=== PATIENT | female | born 1965 | race Caucasian/White ===

== ENCOUNTER → 2022-06-08 09:05 | Outpatient (BNVA) | payer BC, MEDICAID, SELFPAY | PROVIDERS: PCP Registered Nurse; Referring Provider Registered Nurse; Visit Provider Specialist | DX: M17.0 Bilateral primary osteoarthritis of knee (principal) | CPT/HCPCS: 73560; 73565 ==

== ENCOUNTER → 2022-09-07 16:26 | Outpatient (BNVA) | payer BC, MEDICAID, SELFPAY | PROVIDERS: PCP Registered Nurse; Visit Provider Registered Nurse | DX: I10 Essential (primary) hypertension (principal); E78.5 Hyperlipidemia, unspecified; E55.9 Vitamin D deficiency, unspecified; M62.838 Other muscle spasm; F17.210 Nicotine dependence, cigarettes, uncomplicated | CPT/HCPCS: 80053; 80061; 82306; 85025 ==

== ENCOUNTER → 2022-10-15 11:04 | Outpatient (BNVA) | payer BC, MEDICAID, SELFPAY | PROVIDERS: PCP Registered Nurse; Visit Provider Registered Nurse | DX: Z00.00 Encounter for general adult medical examination without abnormal findings (principal) | CPT/HCPCS: 81000 ==

== ENCOUNTER → 2022-10-22 15:07 | Outpatient (BNVA) | payer BC, MEDICAID, SELFPAY | PROVIDERS: PCP Registered Nurse; Visit Provider Registered Nurse | DX: Z01.419 Encounter for gynecological examination (general) (routine) without abnormal findings (principal) | CPT/HCPCS: 87624 ==

== ENCOUNTER 2022-11-12 09:11 | Outpatient (CLI) | payer BC, MEDICAID, SELFPAY ==
--- NOTE | 2022-11-12 02:16 | MM_ITS ---
WS: [id number] SCREENING DIGITAL BREAST TOMOSYNTHESIS MAMMOGRAM WITH CAD HISTORY: Screening exam. COMPARISON: 01/17/2019 and 02/28/2016 Bilateral CC and MLO with tomosynthesis and synthetic mammography submitted. Computer aided detection analyzed. Breast composition: There are scattered areas of fibroglandular density. There is a new 8 x 8 mm slig htly lobulated high density nodule in the central LEFT breast. This is directly posterior and may be just above the nipple line. There is an additional benign lymph node upper outer quadrant LEFT breast . MM/[place] [id number] IMPRESSION: BI-RADS: 0-Incomplete: Need additional imaging evaluation FOLLOW UP: Need Additional Imaging Recommendation: Limited LEFT breast ultrasound directed posterior to the LEFT n ipple.
== END 2022-11-12 09:12 | disposition home or self-care (01) ==
LOC: RAD 09:14
PROVIDERS: PCP Registered Nurse; Visit Provider Registered Nurse
DX: Z12.31 Encounter for screening mammogram for malignant neoplasm of breast (principal)
CPT/HCPCS: 77063; 77067

== ENCOUNTER 2022-12-08 11:57 | Outpatient (CLI) | payer BC, MEDICAID, SELFPAY ==
--- NOTE | 2022-12-08 12:25 | CT_ITS ---
WS: [id number] LDCT LUNG CANCER SCREENING HISTORY: F17.210 - Nicotine dependence, cigarettes, uncomplicated TECHNIQUE: Axial imaging performed from the apices to 1 cm below the costophrenic angles. Coronal and sagittal reformats are submitted with axial MIP series. All CT scans at [facility] use at least one of these dose optimization techniques: automated exposure control; mA and/or kV adjustment per patient size (includes targeted exams where dose is matched to clinical indication); or iterativ e reconstruction. DLP: 73.32 mGy.cm DIvol: Mean CTDIvol: 1.60 (mGy) COMPARISON: None available. Diagnostic quality: Satisfactory Lungs: Spiculated nodule measures 4 mm in the RIGHT upper lobe. Linear atelectasis at the lingula. No endobronchial lesions. Heart: Normal size heart with no pericardial effusion.. Other findings: No adenopathy. Normal size aorta. Negative upper abdomen. CT/CT lung screening [id number] IMPRESSION: LUNG-RADS: 3-Probably Benign FOLLOW UP: 6 Month LDCT OTHER FINDINGS (S MODIFIER): None.
== END 2022-12-08 11:58 | disposition home or self-care (01) ==
LOC: RAD 12:02
PROVIDERS: PCP Registered Nurse; Visit Provider Registered Nurse
DX: Z12.2 Encounter for screening for malignant neoplasm of respiratory organs (principal); F17.210 Nicotine dependence, cigarettes, uncomplicated
CPT/HCPCS: 71271

== ENCOUNTER 2022-12-22 14:21 | Outpatient (CLI) | payer BC, MEDICAID, SELFPAY ==
--- NOTE | 2022-12-22 14:49 | US_ITS ---
WS: [id number] ULTRASOUND LEFT BREAST, limited HISTORY: ABNORMAL MAMMO, ultrasound directed central to the LEFT nipple. COMPARISON: Mammogram 11/12/2022 TECHNIQUE: 2-D and Doppler. Central to the nipple is a well-circumscribed cyst measuring 8 x 4 x 7 mm. Corresponds in size and lo cation to the mammographic abnormality. No solid mass. No distortion or shadowing. US/US breast LT limited* [id number] IMPRESSION: BI-RADS: 2-Benign FOLLOW-UP: 1 Year Follow-up Return to annual screening mammography.
== END 2022-12-22 14:22 | disposition home or self-care (01) ==
LOC: RAD 14:26
PROVIDERS: PCP Registered Nurse; Visit Provider Registered Nurse
DX: R92.8 Other abnormal and inconclusive findings on diagnostic imaging of breast (principal)
CPT/HCPCS: 76642

== ENCOUNTER 2023-07-14 11:57 | Outpatient (CLI) | payer BC, MEDICAID, SELFPAY ==
--- NOTE | 2023-07-14 12:30 | CTR_ITS ---
PROCEDURE INFORMATION: Exam: CT Chest Without Contrast; Diagnostic Exam date and time: 07/14/2023 12:14 PM Age: 58 years old Clinical indication: Condition or disease; Lung condition and disease; Pulmonary nodule, solitary; Additional info: R91.1 - solitary pulmonary nodule, [address] TECHNIQUE: Imaging protocol: Diagnostic computed tomography of the chest without contrast. Radiation optimization: All CT scans at this facility use at least one of these dose optimization techniques: automated exposure control; mA and/or kV adjustment per patient size (includes targeted exams where dose is matched to clinical indication); or iterative reconstruction. REPORTING DATA: Count of CT and Cardiac NM exams in prior 12 months: This patient has received [address] and 0 known cardiac nuclear medicine studies in the 12 months prior to the current study. COMPARISON: CT lung screening [id number] 12/08/2022 12:32 PM RADIATION DOSE METRICS: Total DLP (mGy-cm): 524.83 FINDINGS: Lungs: Unchanged appearance right upper lobe nodule (series 5, image 11). Unchanged left upper lobe nodule (series 5, image 16). Unchanged subtle lingular atelectasis. Pleural spaces: Unremarkable. No pneumothorax. No pleural effusion. Heart: Unremarkable. No cardiomegaly. No pericardial effusion. Lymph nodes: Pretracheal lymph node is slightly smaller than on the prior study. Vasculature: Unremarkable. No aortic aneurysm. Bones/joints: Diffuse degenerative disc disease with bulky anterior osteophytes through the mid and lower thoracic spine. Soft tissues: Unremarkable. CT/CT chest wo [facility] [id number] IMPRESSION: Unchanged appearance of 2 small subsolid nodules in comparison to 12/08/2022. Given stability, would recommend follow-up exam in 2 years. References: Saran Ortiz et al. Guidelines for Management of Incidental Pulmonary Nodules Detected on CT Images: From the Fleischner Society 2017. Radiology. 2017;284(1):228-243.
== END 2023-07-14 11:58 | disposition home or self-care (01) ==
LOC: RAD 11:58
PROVIDERS: PCP Registered Nurse; Visit Provider Registered Nurse
DX: R91.8 Other nonspecific abnormal finding of lung field (principal)
CPT/HCPCS: 71250

== ENCOUNTER → 2023-09-09 10:54 | Outpatient (BNVA) | payer BC, MEDICAID, SELFPAY | PROVIDERS: PCP Registered Nurse; Visit Provider Registered Nurse | DX: I10 Essential (primary) hypertension (principal); F17.210 Nicotine dependence, cigarettes, uncomplicated; Z79.899 Other long term (current) drug therapy | CPT/HCPCS: 80053; 80061; 85025 ==

== ENCOUNTER → 2024-05-09 11:02 | Outpatient (BNVA) | payer BC, MEDICAID, SELFPAY | PROVIDERS: PCP Registered Nurse; Visit Provider Registered Nurse | DX: I10 Essential (primary) hypertension (principal) | CPT/HCPCS: 80053; 80061; 83036; 85025 ==

== ENCOUNTER 2024-06-06 09:59 | Outpatient (CLI) | payer BC, MEDICAID, SELFPAY ==
--- NOTE | 2024-06-06 10:00 | CT_ITS ---
WS: [id number] LDCT LUNG CANCER SCREENING TECHNIQUE: Noncontrast CT of the chest with coronal and sagittal reformatted images. CLINICAL INFORMATION: Z12.2 - Encounter for screening for malignant neoplasm of... COMPARISON: 07/14/2023 DLP: 96.00 mGy.cm DIvol: Mean CTDIvol: 2.30 (mGy) All CT scans at [facility] use at least one of these dose optimization techniques: automat ed exposure control; mA and/or kV adjustment per patient size (includes targeted exams where dose is matched to clinical indication); or iterative reconstruction. FINDINGS: A few tiny subcentimeter nodules unchanged from the prior examinations. No new suspicious pulmonary p arenchymal abnormalities. Normal caliber thoracic aorta. No mediastinal or hilar lymphadenopathy. No axillary lymphadenopathy. Adrenal glands are normal. Normal GE junction. CT/CT lung screening [id number] IMPRESSION: LUNG-RADS: 2-Benign Appearance or Behavior FOLLOW UP: 12 Month: Continue annual screening with LDCT
== END 2024-06-06 10:00 | disposition home or self-care (01) ==
LOC: RAD 10:00
PROVIDERS: PCP Registered Nurse; Visit Provider Registered Nurse
DX: Z12.2 Encounter for screening for malignant neoplasm of respiratory organs (principal); R91.8 Other nonspecific abnormal finding of lung field
CPT/HCPCS: 71271

== ENCOUNTER 2024-07-05 10:55 | Outpatient (CLI) | payer BC, MEDICAID, SELFPAY ==
--- NOTE | 2024-07-05 11:00 | MM_ITS ---
WS: [id number] BILATERAL SCREENING DIGITAL TOMOSYNTHESIS MAMMOGRAM WITH CAD HISTORY: Z12.39 - Encounter for other screening for malignant neop... COMPARISON: 11/12/2022, 01/17/2019 Bilateral CC and MLO views with tomosynthesis and synthetic mammography submitted. Computer aided det ection analyzed. Breast composition: There are scattered areas of fibroglandular density. No suspicious masses, microc alcifications or architectural distortion. Intramammary lymph nodes are stable LEFT breast. No interv al change since 01/17/2019. MM/MM scr BI tomosynthesis [id number] IMPRESSION: BI-RADS: 2 - Benign. FOLLOW UP: 1 Year Follow-up
== END 2024-07-05 10:56 | disposition home or self-care (01) ==
PROVIDERS: PCP Registered Nurse; Visit Provider Registered Nurse
DX: Z12.31 Encounter for screening mammogram for malignant neoplasm of breast (principal)
CPT/HCPCS: 77063; 77067

== ENCOUNTER 2025-05-29 11:06 | Outpatient (CLI) | payer BC, MEDICAID, SELFPAY | END 2025-05-29 11:07 | disposition home or self-care (01) | LOC: LAB 05-30 06:54 | PROVIDERS: PCP Registered Nurse; Visit Provider Registered Nurse | DX: I10 Essential (primary) hypertension (principal) | CPT/HCPCS: 80053; 80061; 85025 ==

== ENCOUNTER 2025-06-18 13:30 | Emergency (ER) | payer BC, MEDICAID, SELFPAY ==
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
--- OUTSIDE RECORDS SUMMARY | 2025-06-18 13:40 | XMS_ITS | Clinical Summary ---
Author Organization [facility] Address [address] [place] [address] Phone Care Team Providers Care Web Site Administrator Name Role Phone Unavailable Primary Care Provider Unavailabl e Allergies No known active allergies Medications atenoloL 25 mg tablet Take 12.5 mg by mouth daily. Active omeprazole 20 mg capsule,delayed release Take 20 mg by mouth daily. Active amLODIPine 10 mg tablet Take 10 mg by mouth daily. Active spironolactone 50 mg tablet Take 50 mg by mouth daily. Active fexofenadine 60 mg tablet Take 60 mg by mouth daily. Active aspirin (ECOTRIN EC) 81 mg Tablet, Delayed Release (E.C.) Take 81 mg by mouth daily. Active atorvastatin (LIPITOR) 10 mg tablet Take 10 mg by mouth daily. Active Immunizations Immunization Administration Dates Next Due (ADACEL/BOOSTRIX)(10 YR UP) TDAP VACCINE, 0.5ML, IM 12/20/2024 Family History Medical History Relation Name Comments Colon Cancer Neg Hx Social History Tobacco Use Types Packs/Day Years Used Date Smoking Tobacco: Every Day Cigarettes Smokeless Tobacco: Never Tobacco Cessation:Ready to Q uit: Not Asked; Counseling Given: Not Answered Alcohol Use Standard Drinks/Week Comments Not Currently 0 (1 standard drink = 0.6 oz pur e alcohol) Feeling Safe Answer Date Recorded Are you in a relationship wi th someone who hurts you emotionally and/or physically? No 12/20/2024 Comments No Sex and Gender Information Value Date Recorded Sex Assigned at Not on file Legal Sex Female 11:03 AM CDT Gender Identity Not on file Sexual Orientation Not on file Last Filed Vital Signs Vital Sign Reading Time Taken Comments Blood Pressure 110/81 12/20/2024 4:15 PM CDT Pulse 81 12/20/2024 4:15 PM CDT Temperature 36.8 C (98.3 F) 12/20/2024 4:15 PM CDT Respiratory Rate 15 12/20/2024 4:15 PM CDT Oxygen Saturation 90% 12/20/2024 4:15 PM CDT Inhaled Oxygen Concentration - - Weight 89.8 kg (198 lb) 12/20/2024 4:15 PM CDT Height 167.6 cm (5' 6 ) 12/20/2024 4:15 PM CDT Body Mass Index 31.96 12/20/2024 4:15 PM CDT Plan of Treatment Health Maintenance Due Date Last Done Comments Pre-Diabetes and Diabetes Screening 1966 HPV/Cotest (21-29) 1987 CERVICAL CANCER SCREENING 1996 HPV/Cotest (30-65) 1996 PAP SMEAR 1996 BREAST CANCER SCREENING 2006 COLORECTAL SCREENING 2011 Colorectal Cancer Screening 2011 FIT-DNA Q 3 years 2011 FIT/FOBT Q 1 year 2011 Flex Sig/CT Colonography Q 5 years 2011 HEPATITIS B VACCINES (3 of 4 - Hep B Twinrix 4-dose series) 01/31/2019 01/17/2019, 01/04/2019, 12/27/2018 ZOSTER VACCINE (2 of 2) 07/15/2021 05/20/2021 INFLUENZA VACCINE (#1) 2025 COVID-19 Vaccine ( - season) 2025, 04/29/2021 DTAP/TDAP/TD VACCINES (3 - T d or Tdap) 12/20/2034 12/20/2024, 12/27/2018 Insurance [facility] MEDICAID
[2025-06-18 13:43] VITALS: BP 155/87; PULSE 79; RESP 16; TEMP 36.9; O2SAT 97
[2025-06-18 14:01] LABS: Glucose Urine UA Negative (Normal); Nitrate Urine Negative (Negative); Specific Gravity, Urine 1.017 (1.005-1.030)
[2025-06-18 14:06] LABS: Add Urine Microscopic? YES
[2025-06-18 14:23] LABS: Hematocrit 44.3 % (36-47); Hemoglobin 15.70 g/dL (11.27-16.99); Mean Corpuscular HGB Conc 35.4 g/dL (30-55); Mean Corpuscular Hemoglobin 31.5 pg (27-33); Mean Corpuscular Volume 89.0 fl (85-98); Nucleated Red Blood Cells % 0 %; Platelet Count 349 10^3/cmm (157-399); Red Blood Count 4.98 10^6/uL (3.85-5.65); White Blood Count 11.45 10^3/uL (3.29-11.43)
[2025-06-18 14:40] LABS: Alanine Aminotransferase 13 U/L (0-33); Albumin Level 4.4 g/dL (3.5-5.2); Alkaline Phosphatase 98 U/L (35-105); Anion Gap 15.9 (5-19); Aspartate Amino Transferase 14 U/L (0-32); Blood Urea Nitrogen 9 mg/dL (6-20); Calcium 9.7 mg/dL (8.5-10.5); Carbon Dioxide 21 mmol/L (22-29); Chloride 106 mmol/L (98-107); Creatinine Clr Calc Pharmacy 98.1337; Globulin 2.9 g/dL (1.3-4.6); Glucose 96 mg/dL (65-115); Osmolality Calculated 287 mOsm/kg (285-295); Potassium 3.9 mmol/L (3.5-5.1); Sodium 139 mmol/L (136-145); Total Protein 7.3 g/dL (6.6-8.7)
--- NOTE | 2025-06-18 16:03 | ED_ITS ---
HPI - Female Genitourinary 2 General: Chief complaint: General Medical Stated complaint: woke up spotting Time Seen by Provider: 06/18/25 13:41 Source: patient Mode of arrival: ambulatory Limitations: no limitations History of Present Illness: Patient is a 59-year-old female presents to ED today along with her significant other for evaluation of spotting . She states this morning she woke up with a small amount of bright red blood in her underwear. Patient states when she went to the bathroom and wiped she noticed additional bright red blood on the toilet paper. Patient states she is not sure if this is coming from her urethra, vagina, or rectum. She states she entered menopause over 10 years ago. She does reportedly get well woman exams through her primary care provider. She states she is not having dysuria, urinary frequency or urgency. She is not having any flank pain. She does report maybe some mild pressure to her left ovary and some lower back pain that she noticed while sitting in the waiting room. She is not having fevers. Denies history of hemorrhoids. She has not noticed any bright red blood when wiping after defecation. MD elicited complaint: vaginal bleeding Onset (ago): hour(s) Vaginal discharge: none Vaginal bleeding: scant Exacerbating factors: none Relieving factors: none Associated symptoms: Deny abdominal pain, headache(s), nausea or vaginal discharge Treatment prior to arrival: none Patient : No Related Data Home Medications ?Medication ?Instructions ?Recorded ?Confirmed cetirizine 10 mg capsule (Allergy 10 mg PO DAILY PRN a llergies 02/12/22 06/18/25 Relief (cetirizine)) aspirin 81 mg tablet,delayed 81 mg PO DAILY 06/06/24 0 06/18/25 release Previous Rx's ?Medication ?Instructions ?Recorded spironolactone 50 mg tablet See Rx Instructions .Route 04/26/25 .COMPLEX #90 tabs amlodipine 10 mg tablet See Rx Instructions .Route 0 05/15/25 .COMPLEX #90 tabs atenolol 25 mg tablet See Rx Instructions .Route 0 05/15/25 .COMPLEX 90 days #45 tabs atorvastatin 10 mg tablet See Rx Instructions .Route 0 06/12/25 .COMPLEX #90 tabs Allergies Allergy/AdvReac Type Severity Reaction Status Date / Time No Known Allergies Allergy Verified 05/29/25 10:49 Review of Systems 2 Const: Denies: fever(s), chills, body aches, fatigue or malaise Card: Denies: chest pain Resp: Denies: dyspnea GI: Denies: abdominal pain, nausea, vomiting, diarrhea, GI cramping, hematochezia or melena : Reports: vaginal bleeding and pelvic pain (reports maybe some pressure to my left ovary ); Denies: flank pain, difficulty voiding, dysuria, urinary frequency, urinary urgency, urinary hesitancy, hematuria, vaginal odor or vaginal discharge Musc: Denies: neck pain, back pain, extremity pain, extremity swelling or joint swelling Skin/Breast: Denies: rash Neuro: Denies: headache(s), numbness in extremities, weakness in extremities or sensory changes PFSH ED 2 PFSH: Medical History Fibromyalgia Arthritis Family History Father Cancer Mother Diabetes Grandmother Diabetes Social History Smoking and tobacco/nicotine status: current every day tobacco/nicotine user cigarettes Alcohol intake: never Substance/Drug Use: never Adopted: No Caregiver/support person: No Lives independently: No Household members: spouse Marital status: service: No Current occupational status: previously employed Sexually active: Yes Do you think of yourself as: Straight/Heterosexual Current gender identity: Female Physical Exam 2 Const: COMMON NORMALS: no acute distress, average body habitus, patient oriented x3, no limitations, healthy appearing, alert and well nourished G ENERAL APPEARANCE: cooperative Resp: COMMON NORMALS: normal respiratory effort and clear to auscultation bilaterally AUSCULTATION: clear to auscultation bilaterally Cardio: COMMON NORMALS: regular rate and regular rhythm RATE: regular rate RHYTHM: regular rhythm GI: COMMON NORMALS: Normal to inspection, nondistended, normoactive bowel sounds present, Soft to palpation, non-tender, No hepatosplenomegaly present and no masses PALPATION: Yes Soft to palpation and Yes No hepatosplenomegaly present : COMMON NORMALS: Yes no CVA tenderness BLADDER/KIDNEY EXAM: Yes no CVA tenderness Back/Pelvis: COMMON NORMALS: no CVA tenderness Neuro: COMMON NORMALS: patient oriented x3 SENSORIUM/ORIENTATION: Yes alert Course 2 Vital Signs: Vital signs: Vital Signs Temperature 98.5 F 06/18/25 13:43 Pulse Rate 79 06/18/25 13:43 Respiratory Rate 16 06/18/25 13:43 Blood Pressure 155/87 06/18/25 13:43 Pulse Oximetry 97 06/18/25 13:43 Oxygen Delivery Me thod Room Air 06/18/25 13:43 MDM - Female Medical Decision Making Based on her history, I suspect bleeding is vaginal. Her UA here is negative for blood. Blood work is unremarkable. US transvaginal obtained showing a prominent endometrium as well as an irregular appearance of her cervical canal. Recommend direct visualization/tissue sampling to exclude neoplasm. Case management referral has been placed to get her gynecology follow-up for this. She is not actively bleeding. She is stable for discharge from the emergency department. Return ED precautions discussed. Medical Records I reviewed the patient's medical records. Lab Data I reviewed the patient's lab results. 06/18/25 14:12 06/18/25 14:12 Radiology Impressions Transvaginal US 06/18/25 16:03 IMPRESSION: 1. Prominent endometrium in the lower uterine segment as well as a prominent, irregular appearance of the cervical canal. Consider direct visualization/tissue sampling to exclude neoplasm. 2. Bilateral ovaries not visualized. Laboratory Results WBC 11.45 10^3/uL (3.29-11.43) H 06/18/25 14:12 RBC 4.98 10^6/uL (3.85-5.65) 06/18/25 14:12 Hgb 15.70 g/dL (11.27-16.99) 06/18/25 14:12 Hct 44.3 % (36-47) 06/18/25 14:12 MCV 89.0 fl (85-98) 06/18/25 14:12 MCH 31.5 pg (27-33) 06/18/25 14:12 MCHC 35.4 g/dL (30-55) 06/18/25 14:12 RDW 13.2 % (12.1-15.1) 06/18/25 14:12 Plt Count 349 10^3/cmm (157-399) 06/18/25 14:12 MPV 10.1 fL (7.4-10.4) 06/18/25 14:12 Neut % (Auto) 59.2 % 06/18/25 14:12 Lymph % (Auto) 29.0 % 06/18/25 14:12 [place] % (Auto) 8.7 % 06/18/25 14:12 Eos % (Auto) 1.6 % 06/18/25 14:12 Baso % (Auto) 0.9 % 06/18/25 14:12 Neut # (Auto) 6.78 10^3/uL (1.8-7.7) 06/18/25 14:12 Lymph # (Auto) 3.3 10^3/uL (0.8-4.8) 06/18/25 14:12 [place] # (Auto) 1.0 10^3/uL (0.2-0.9) H 06/18/25 14:12 Eos # (Auto) 0.2 10^3/uL (0.0-0.8) 06/18/25 14:12 Baso # (Auto) 0.1 10^3/uL (0.0-0.1) 06/18/25 14:12 Nucleated RBC % (auto) 0 % 06/18/25 14:12 Nucleated RBCs # 0.0 /100WBC 06/18/25 14:12 Sodium 139 mmol/L (136-145) 06/18/25 14:12 Potassium 3.9 mmol/L (3.5-5.1) 06/18/25 14:12 Chloride 106 mmol/L (98-107) 06/18/25 14:12 Carbon Dioxide 21 mmol/L (22-29) L 06/18/25 14:12 Anion Gap 15.9 (5-19) 06/18/25 14:12 BUN 9 mg/dL (6-20) 06/18/25 14:12 Creatinine 0.7 mg/dL (0.5-0.9) 06/18/25 14:12 GFR Calculation 85.9 mL/min (90-130) L 06/18/25 14:12 Glucose 96 mg/dL (65-115) 06/18/25 14:12 Calculated Osmolality 287 mOsm/kg (285-295) 06/18/25 14:12 Calcium 9.7 mg/dL (8.5-10.5) 06/18/25 14:12 Total Bilirubin 0.4 mg/dL (0.15-1.2) 06/18/25 14:12 AST 14 U/L (0-32) 06/18/25 14:12 ALT 13 U/L (0-33) 06/18/25 14:12 Alkaline Phosphatase 98 U/L (35-105) 06/18/25 14:12 Total Protein 7.3 g/dL (6.6-8.7) 06/18/25 14:12 Albumin 4.4 g/dL (3.5-5.2) 06/18/25 14:12 Globulin 2.9 g/dL (1.3-4.6) 06/18/25 14:12 Urine Color Yellow (Yellow) 06/18/25 13:50 Urine Appearance Clear (CLEAR) 06/18/25 13:50 Urine pH 6.0 (5-7) 06/18/25 13:50 Ur Specific [place] 1.017 (1.005-1.030) 06/18/25 13:50 Urine Protein 2+ (Negative) A 06/18/25 13:50 Urine Glucose (UA) Negative (Normal) 06/18/25 13:50 Urine Ketones Trace (Negative) 06/18/25 13:50 Urine Blood Negative (Negative) 06/18/25 13:50 Urine Nitrate Negative (Negative) 06/18/25 13:50 Urine Bilirubin Negative (Negative) 06/18/25 13:50 Urine Urobilinogen 1.0 mg/dL (Negative) 06/18/25 13:50 Ur Leukocyte Esterase Trace (Negative) A 06/18/25 13:50 Urine RBC 3-5 /hpf (0-2) 06/18/25 13:50 Urine WBC 0-5 /hpf (0-5) 06/18/25 13:50 Ur Squamous Epith Cells 0-5 /hpf (0-5) 06/18/25 13:50 Amorphous Sediment Not Reportable 06/18/25 13:50 Urine Bacteria None seen /hpf (NONE) 06/18/25 13:50 Hyaline Casts 0.40 /lpf 06/18/25 13:50 All radiology interpretation(s) finalized by discharge Discharge Plan Discharge Patient Disposition: Home Clinical Impression: Abnormal vaginal bleeding in postmenopausal patient Condition: Stable Prescriptions: No Action Allergy Relief (cetirizine) 10 mg capsule 10 mg PO DAILY PRN (Reason: allergies) aspirin 81 mg tablet,delayed release (DR/EC) 81 mg PO DAILY spironolactone 50 mg tablet See Rx Instructions .ROUTE .COMPLEX Qty: 90 0RF Dose Instruction: TAKE 1 TABLET BY MOUTH ONCE DAILY . APPOINTMENT REQUIRED FOR FUTURE REFILLS Rx Instructions: TAKE 1 TABLET BY MOUTH ONCE DAILY . APPOINTMENT REQUIRED FOR FUTURE REFILLS amlodipine 10 mg tablet See Rx Instructions .ROUTE .COMPLEX Qty: 90 0RF Dose Instruction: Take 1 tablet by mouth once daily Rx Instructions: Take 1 tablet by mouth once daily atenolol 25 mg tablet See Rx Instructions .ROUTE .COMPLEX 90 Days Qty: 45 1RF Dose Instruction: Take 1/2 (one-half) tablet by mouth once daily Rx Instructions: Take 1/2 (one-half) tablet by mouth once daily atorvastatin 10 mg tablet See Rx Instructions .ROUTE .COMPLEX Qty: 90 0RF Dose Instruction: Take 1 tablet by mouth once daily Rx Instructions: Take 1 tablet by mouth once daily Discharge Orders: Discharge ED (Routine); Ordered 06/18/25 Ordered By: Anca Elliott Referrals: Lucille Ledesma FNP [Primary Care Provider, Family Practice] Patient Instructions: Patient Portal & Ricardo Instructions Activity Restrictions/Additional Instructions: As we discussed, case management should contact you this week to help set you up with your follow-up appointment with gynecology for further evaluation of postmenopausal vaginal bleeding. Print Language: Turkish Coding Level of Care Code ED Director Of Strategic Programs for Zack Puente
--- NOTE | 2025-06-18 16:03 | USR_ITS ---
PROCEDURE INFORMATION: Exam: US Pelvis, Transvaginal, Non-Obstetric Exam date and time: 06/18/2025 5:10 PM Age: 59 years old Clinical indication: Other: Post peng bleeding; Prior surgery; Surgery date: 6+ months; Surgery type: C-sections; Additional info: Post menopausal vaginal bleeding TECHNIQUE: Imaging protocol: Real-time transvaginal pelvic (non-obstetric) ultrasound with image documentation. Transvaginal imaging was used for better evaluation of the endometrium, adnexa, and/or cervix. COMPARISON: No relevant prior studies available. FINDINGS: Uterus: Uterus is normal in size. Endometrial stripe is normal within the uterine body/fundus, measuring 0.3 cm in thickness. However, the endometrium in the lower uterine segment as well as the cervical canal appear somewhat irregular and prominent. No significant flow on color imaging. Right ovary/adnexa: Obscured by lack of acoustic window. Left ovary/adnexa: Obscured by lack of acoustic window. Urinary bladder: Not imaged. Intraperitoneal space: No free fluid. US/US transvaginal [id number] IMPRESSION: 1. Prominent endometrium in the lower uterine segment as well as a prominent, irregular appearance of the cervical canal. Consider direct visualization/tissue sampling to exclude neoplasm. 2. Bilateral ovaries not visualized.
--- NOTE | 2025-06-18 16:21 | PC.PHAR ---
Patient states she took a generic valium at 5 am . I show know history for valium in her profile.
--- NOTE | 2025-06-19 07:13 | DCPLANNER ---
messaged [facility] for er f/u
== END 2025-06-18 18:02 | disposition home or self-care (01) ==
PROVIDERS: Emergency Provider Physician Assistant; PCP Registered Nurse
DX: N95.0 Postmenopausal bleeding (principal)
CPT/HCPCS: 36415; 76830; 80053; 81001; 85025; 99284

== ENCOUNTER 2025-07-06 09:41 | Outpatient (CLI) | payer BC, MEDICAID, SELFPAY ==
--- NOTE | 2025-07-06 10:00 | CT_ITS ---
WS: [id number] LDCT LUNG CANCER SCREENING TECHNIQUE: Noncontrast CT of the chest with coronal and sagittal reformatted images. CLINICAL INFORMATION: Z87.891 - Personal history of nicotine dependence COMPARISON: None. DLP: 91.21 mGy.cm DIvol: Mean CTDIvol: 2.20 (mGy) All CT scans at [facility] use at least one of these dose optimization techniques: automated exposure control; mA and/or kV adjustment per patient size (includes targeted exams where dose is matched to clinical indication); or iterative reconstruction. FINDINGS: Numerous diffuse scattered noncalcified subcentimeter pulmonary nodules the largest nodules measuring up to 4 to 5 mm throughout both lungs. The number of nodules has increased today compared to previous. No visualized nodules over 4 to 5 mm in size. Chronic emphysematous changes. Normal caliber thoracic aorta. No mediastinal or hilar lymphadenopathy. No axillary lymphadenopathy. Adrenal glands are normal. CT/CT lung screening [id number] IMPRESSION: LUNG-RADS: 2-Benign Appearance or Behavior FOLLOW UP: 12 Month: Continue annual screening with LDCT
--- NOTE | 2025-07-06 10:40 | MM_ITS ---
WS: [id number] BILATERAL SCREENING DIGITAL TOMOSYNTHESIS MAMMOGRAM WITH CAD HISTORY: Z12.31 - Encounter for screening mammogram for malignant ... COMPARISON: 07/05/2024, 11/12/2022 Bilateral CC and MLO views with tomosynthesis and synthetic mammography submitted. Computer aided detection analyzed. Breast composition: There are scattered areas of fibroglandular density. No suspicious masses, microcalcifications or architectural distortion. Intramammary lymph nodes are stable. No suspicious mass or calcification. MM/MM scr BI tomosynthesis [id number] IMPRESSION: BI-RADS: 2 - Benign. FOLLOW UP: 1 Year Follow-up
== END 2025-07-06 09:42 | disposition home or self-care (01) ==
LOC: RAD 09:44
PROVIDERS: PCP Registered Nurse; Visit Provider Registered Nurse
DX: Z12.31 Encounter for screening mammogram for malignant neoplasm of breast (principal); Z12.2 Encounter for screening for malignant neoplasm of respiratory organs; Z87.891 Personal history of nicotine dependence; R92.323 Mammographic fibroglandular density, bilateral breasts; R91.8 Other nonspecific abnormal finding of lung field
CPT/HCPCS: 71271; 77063; 77067

== ENCOUNTER → 2025-07-16 14:04 | Outpatient (BNVA) | payer BC, MEDICAID, SELFPAY | PROVIDERS: PCP Registered Nurse; Visit Provider Obstetrics & Gynecology | DX: N95.0 Postmenopausal bleeding (principal) | CPT/HCPCS: 81000 ==

== ENCOUNTER → 2025-07-20 11:12 | Outpatient (BNVA) | payer BC, MEDICAID, SELFPAY | PROVIDERS: PCP Registered Nurse; Visit Provider Nurse Practitioner Family | DX: N39.0 Urinary tract infection, site not specified (principal) | CPT/HCPCS: 81000 ==

== ENCOUNTER 2025-07-22 23:57 | Emergency (ER) | payer BC, MEDICAID, SELFPAY ==
--- NOTE | 2025-07-23 00:01 | ECG_ITS ---
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
[2025-07-23 00:02] VITALS: BP 157/88; PULSE 90; RESP 18; TEMP 36.5; O2SAT 96; BMI 31.1
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
--- NOTE | 2025-07-23 00:14 | XRR_ITS ---
PROCEDURE INFORMATION: Exam: XR Chest Exam date and time: 07/23/2025 12:26 AM Age: 60 years old Clinical indication: Chest pressure; C/O chest pain; Additional info: Cp TECHNIQUE: Imaging protocol: Radiologic exam of the chest. Views: 1 view. COMPARISON: CT lung screening [id number] 07/06/2025 10:05 AM FINDINGS: Lungs: Left lower lobe atelectasis. Pleural spaces: Unremarkable. No pleural effusion. No pneumothorax. Heart/Mediastinum: Unremarkable. No cardiomegaly. Bones/joints: Unremarkable. XR/XR chest 1V portable [id number] IMPRESSION: Left lower lobe atelectasis.
[2025-07-23 00:31] LABS: Hematocrit 44.5 % (36-47); Hemoglobin 15.50 g/dL (11.27-16.99); Mean Corpuscular HGB Conc 34.8 g/dL (30-55); Mean Corpuscular Hemoglobin 31.2 pg (27-33); Mean Corpuscular Volume 89.5 fl (85-98); Nucleated Red Blood Cells % 0 %; Platelet Count 311 10^3/cmm (157-399); Red Blood Count 4.97 10^6/uL (3.85-5.65); White Blood Count 9.34 10^3/uL (3.29-11.43)
[2025-07-23 00:54] LABS: Troponin(5th) Baseline < 6 ng/L (0-10)
[2025-07-23 01:01] LABS: Alanine Aminotransferase 12 U/L (0-33); Albumin Level 4.4 g/dL (3.5-5.2); Alkaline Phosphatase 92 U/L (35-105); Anion Gap 17.8 (5-19); Aspartate Amino Transferase 13 U/L (0-32); Blood Urea Nitrogen 6 mg/dL (6-20); Calcium 9.1 mg/dL (8.5-10.5); Carbon Dioxide 21 mmol/L (22-29); Chloride 104 mmol/L (98-107); Creatinine Clr Calc Pharmacy 96.4408; Globulin 2.0 g/dL (1.3-4.6); Glucose 117 mg/dL (65-115); NT Pro B Type Natriuretic Pept 49 pg/mL (0-125); Osmolality Calculated 287 mOsm/kg (285-295); Potassium 3.8 mmol/L (3.5-5.1); Sodium 139 mmol/L (136-145); Total Protein 6.4 g/dL (6.6-8.7)
--- NOTE | 2025-07-23 01:01 | W.ED.CHESTPA ---
HPI - Chest Pain General: Chief Complaint: Chest Pain Stated Complaint: Chest Pressure Left side tingling Time Seen by Provider: 07/23/25 00:10 History of Present Illness: Patient is a 60-year-old female presenting with pain and tingling in her left arm that has been ongoing for approximately one year. She describes the sensation as extending from her underarm down her left arm, with associated tingling in her palms and fingers. Tonight, she experienced acute pain described as a pinch when raising her left arm to remove her top. She reports having experienced shortness of breath intermittently, though not significantly at the time of examination. She notes that no cardiac imaging has been performed to evaluate this chronic symptom. The patient's reports hearing her in distress from another room earlier today, which prompted the current visit. Related Data Home Medications ?Medication ?Instructions ?Recorded ?Confirmed cetirizine 10 mg capsule (Allergy 10 mg PO DAILY PRN allergies 02/12/22 07/20/25 Relief (cetirizine)) aspirin 81 mg tablet,delayed 81 mg PO DAILY 06/06/24 07/20/25 release Previous Rx's ?Medication ?Instructions ?Recorded amlodipine 10 mg tablet See Rx Instructions .Route 05/15/25 .COMPLEX #90 tabs atenolol 25 mg tablet See Rx Instructions .Route 05/15/25 .COMPLEX 90 days #45 tabs atorvastatin 10 mg tablet See Rx Instructions .Route 06/12/25 .COMPLEX #90 tabs spironolactone 50 mg tablet See Rx Instructions .Route 07/16/25 .COMPLEX #90 tabs ciprofloxacin HCl 500 mg tablet 500 mg PO BID 7 days #14 tabs 07/20/25 methocarbamol 750 mg tablet 750 mg PO TID #10 tabs 07/23/25 methylprednisolone 4 mg tablets in See Rx Instructions PO .COMPLEX 07/23/25 a dose pack (Medrol (Reed)) #21 ea Allergies Allergy/AdvReac Type Severity Reaction Status Date / Time No Known Allergies Allergy Verified 07/23/25 00:08 COUNTS INCLUDE 234 BEDS AT THE [facility] ED PFS: Medical History Hypertension History of skin cancer left side of neck Fibromyalgia Arthritis Surgical History History of section History of umbilical hernia repair History of tonsillectomy Hx of colonoscopy with polypectomy prior to 2019 [place] Family History Father Cancer Mother Diabetes Grandmother Diabetes Social History Smoking and tobacco/nicotine status: current every day tobacco/nicotine user cigarettes Alcohol intake: never Substance/Drug Use: never Adopted: No Caregiver/support person: No Lives independently: No Household members: spouse Marital status: service: No Current occupational status: previously employed Sexually active: Yes Do you think of yourself as: Straight/Heterosexual Current gender identity: Female Physical Exam Const: COMMON NORMALS: no acute distress GENERAL APPEARANCE: cooperative; not ill appearing and not frail appearing HENMT: COMMON NORMALS: normocephalic, atraumatic and Normal external nose present HEAD & SCALP: normocephalic and atraumatic FACE & SINUS: normal facial exam and face symmetric NOSE: Normal external nose present Eye: COMMON NORMALS: Equal, round and reactive pupils present and EOMs intact bilaterally PUPIL: Yes Equal, round and reactive pupils present Neck/C-Spine: GENERAL: Yes trachea midline OTHER: Mild tenderness at C7. Spurling's test increases pain to the left upper extremity. Chest: CHEST: Yes Symmetrical chest wall rise OTHER: Tenderness to palpation left upper chest wall anteriorly Resp: COMMON NORMALS: normal respiratory effort, No retractions, No use of accessory muscles and clear to auscultation bilaterally AUSCULTATION: clear to auscultation bilaterally Cardio: COMMON NORMALS: regular rate and regular rhythm RATE: regular rate RHYTHM: regular rhythm GI: COMMON NORMALS: Normal to inspection, nondistended, normoactive bowel sounds present Extremity: COMMON NORMALS: no pedal edema Neuro: BAILEY COMA SCALE: document GCS findings Bailey coma scale eye opening: Spontaneous Bailey coma scale verbal response: Orientated Bailey coma scale motor response: Obey commands [place] coma scale total score: 15 SENSORY EXAM: Yes extremities (intact) Psych: COMMON NORMALS: speech normal SPEECH: Yes normal speech Skin: COMMON NORMALS: no rashes or lesions noted GENERAL SKIN EXAM: no rashes or lesions noted Course Vital Signs: Vital signs: Vital Signs Temperature 97.7 F 07/23/25 00:02 Pulse Rate 84 07/23/25 02:23 Respiratory Rate 16 07/23/25 01:38 Blood Pressure 139/69 07/23/25 02:23 Pulse Oximetry 97 07/23/25 02:23 Oxygen Delivery Me thod Room Air 07/23/25 00:02 MDM - Chest Pain Medical Decision Making EKG time 0123. Read 0125. Sinus rhythm, rate of 90. Intervals are normal. [place] is normal. No acute ST wave changes. QTc is 350. Chest x-ray shows lower lobe atelectasis on the left. No infiltrate. CBC is normal. BMP is normal. Troponin is nondetectable. BNP is normal. Pain is reproducible on palpation. Numbness and tingling reproducible with Spurling's test. She will be diagnosed with cervical radiculopathy. Tapering dose of steroid. Muscle relaxer. Outpatient follow-up. She is stable for discharge. To return for new or worsening symptoms. Lab Data 07/23/25 00:25 07/23/25 00:25 Radiology Impressions Chest X-Ray 07/23/25 00:14 IMPRESSION: Left lower lobe atelectasis. Laboratory Results WBC 9.34 10^3/uL (3.29-11.43) 07/23/25 00:25 RBC 4.97 10^6/uL (3.85-5.65) 07/23/25 00:25 Hgb 15.50 g/dL (11.27-16.99) 07/23/25 00:25 Hct 44.5 % (36-47) 07/23/25 00:25 MCV 89.5 fl (85-98) 07/23/25 00:25 MCH 31.2 pg (27-33) 07/23/25 00: MCHC 34.8 g/dL (30-55) 07/23/25 00:25 RDW 13.0 % (12.1-15.1) 07/23/25 00:25 Plt Count 311 10^3/cmm (157-399) 07/23/25 00:25 MPV 10.2 fL (7.4-10.4) 07/23/25 00:25 Neut % (Auto) 49.5 % 07/23/25 00:25 Lymph % (Auto) 37.4 % 07/23/25 00:25 Hutchinson % (Auto) 8.7 % 07/23/25 00:25 Eos % (Auto) 3.3 % 07/23/25 00:25 Baso % (Auto) 0.6 % 07/23/25 00:25 Neut # (Auto) 4.62 10^3/uL (1.8-7.7) 07/23/25 00:25 Lymph # (Auto) 3.5 10^3/uL (0.8-4.8) 07/23/25 00:25 Hutchinson # (Auto) 0.8 10^3/uL (0.2-0.9) 07/23/25 00:25 Eos # (Auto) 0.3 10^3/uL (0.0-0.8) 07/23/25 00:25 Baso # (Auto) 0.1 10^3/uL (0.0-0.1) 07/23/25 00:25 Nucleated RBC % (auto) 0 % 07/23/25 00: Nucleated RBCs # 0.0 /100WBC 07/23/25 00:25 Sodium 139 mmol/L (136-145) 07/23/25 00:25 Potassium 3.8 mmol/L (3.5-5.1) 07/23/25 00:25 Chloride 104 mmol/L (98-107) 07/23/25 00:25 Carbon Dioxide 21 mmol/L (22-29) L 07/23/25 00:25 Anion Gap 17.8 (5-19) 07/23/25 00:25 BUN 6 mg/dL (6-20) 07/23/25 00:25 Creatinine 0.7 mg/dL (0.5-0.9) 07/23/25 00:25 GFR Calculation 85.6 mL/min (90-130) L 07/23/25 00: Glucose 117 mg/dL (65-115) H 07/23/25 00:25 Calculated Osmolality 287 mOsm/kg (285-295) 07/23/25 00: Calcium 9.1 mg/dL (8.5-10.5) 07/23/25 00:25 Total Bilirubin 0.3 mg/dL (0.15-1.2) 07/23/25 00:25 AST 13 U/L (0-32) 07/23/25 00:25 ALT 12 U/L (0-33) 07/23/25 00:25 Alkaline Phosphatase 92 U/L (35-105) 07/23/25 00:25 Troponin T Baseline < 6 ng/L (0-10) 07/23/25 00:25 NT-Pro-B Natriuret Pep 49 pg/mL (0-125) 07/23/25 00:25 Total Protein 6.4 g/dL (6.6-8.7) L 07/23/25 00:25 Albumin 4.4 g/dL (3.5-5.2) 07/23/25 00:25 Globulin 2.0 g/dL (1.3-4.6) 07/23/25 00:25 All radiology interpretation(s) finalized by discharge Discharge Plan Discharge Patient Disposition: Home Clinical Impression: Cervical radiculopathy Condition: Stable Prescriptions: New methylprednisolone [Medrol (Reed)] 4 mg tablets,dose pack See Rx Instructions .ROUTE .COMPLEX Qty: 21 0RF Rx Instructions: orally per package directions methocarbamol 750 mg tablet 750 mg PO TID Qty: 10 0RF No Action Allergy Relief (cetirizine) 10 mg capsule 10 mg PO DAILY PRN (Reason: allergies) aspirin 81 mg tablet,delayed release (DR/EC) 81 mg PO DAILY ciprofloxacin HCl 500 mg tablet 500 mg PO BID 7 Days Qty: 14 0RF amlodipine 10 mg tablet See Rx Instructions .ROUTE .COMPLEX Qty: 90 0RF Dose Instruction: Take 1 tablet by mouth once daily Rx Instructions: Take 1 tablet by mouth once daily atenolol 25 mg tablet See Rx Instructions .ROUTE .COMPLEX 90 Days Qty: 45 1RF Dose Instruction: Take 1/2 (one-half) tablet by mouth once daily Rx Instructions: Take 1/2 (one-half) tablet by mouth once daily atorvastatin 10 mg tablet See Rx Instructions .ROUTE .COMPLEX Qty: 90 0RF Dose Instruction: Take 1 tablet by mouth once daily Rx Instructions: Take 1 tablet by mouth once daily spironolactone 50 mg tablet See Rx Instructions .ROUTE .COMPLEX Qty: 90 0RF Dose Instruction: TAKE 1 TABLET BY MOUTH ONCE DAILY . APPOINTMENT REQUIRED FOR FUTURE REFILLS Rx Instructions: TAKE 1 TABLET BY MOUTH ONCE DAILY . APPOINTMENT REQUIRED FOR FUTURE REFILLS Discharge Orders: Discharge ED (Routine); Ordered 07/23/25 Ordered By: Héctor Dawson Referrals: Lucille Ledesma FNP [Primary Care Provider, Family Practice] - 4-7 days Patient Instructions: Cervical Radiculopathy (ED), Opioid Safety, Pain Management, Patient Portal & Ricardo Instructions Activity Restrictions/Additional Instructions: Medication as directed. Ice or heat may help. Call your doctor in the morning for follow-up appointment this week. Return for worsening chest discomfort despite treatment, shortness of breath, fever, any other concerning symptoms. Print Language: Tongan Coding Level of Care Code ED Inhalation Therapy Aide for Chg Fwd Heart Score HEART Score Components History: Slightly Suspicous EKG: Normal Age: 45-64 yrs Risk Factors: 1 or 2 Risk Factors Troponin: Baseline Trop <16 ng/L HEART Score RESULT HEART Score: 2
[2025-07-23 01:38] VITALS: BP 135/70; PULSE 75; RESP 16; O2SAT 97
[2025-07-23] MEDS: methylPREDNISolone sod succ 125 mg/2 mL INJ 80 MG IVP (02:13)
[2025-07-23] MEDS: orphenadrine 30 mg/mL Inj 2 mL 60 MG IVP (02:13)
[2025-07-23 02:23] VITALS: BP 139/69; PULSE 84; O2SAT 97
== END 2025-07-23 02:25 | disposition home or self-care (01) ==
PROVIDERS: Emergency Provider Emergency Medicine; PCP Registered Nurse
DX: M54.12 Radiculopathy, cervical region (principal); F17.210 Nicotine dependence, cigarettes, uncomplicated; I10 Essential (primary) hypertension; Z85.828 Personal history of other malignant neoplasm of skin
CPT/HCPCS: 36415; 71045; 80053; 83880; 84484; 85025; 93005; 96374; 96375; 99285; J2360; J2919

== ENCOUNTER → 2025-08-01 10:18 | Outpatient (BNVA) | payer BC, MEDICAID, SELFPAY | PROVIDERS: PCP Registered Nurse; Visit Provider Registered Nurse | DX: N39.0 Urinary tract infection, site not specified (principal) | CPT/HCPCS: 81000 ==

== ENCOUNTER 2025-08-16 07:02 | Day surgery (SDC) | payer BC, MEDICAID, SELFPAY ==
[2025-08-16 07:23] VITALS: BP 145/95; PULSE 110; RESP 20; TEMP 36.3; O2SAT 100; BMI 30.7
--- NOTE | 2025-08-16 08:02 | ANES.PREANE2 ---
Pre-Anesthetic Assessment Height/Weight: Height 5 ft 6 in Weight 190 lb Temp Pulse Resp BP Pulse Ox O2 Del Method 97.4 F L 110 H 20 H 145/95 100 Room Air 08/16/25 07:23 08/16/25 07:23 08/16/25 07:23 08/16/25 07:23 08/16/25 07:23 08/16/25 07:23 Preop Diagnosis: Screening colonoscopy Operation Date: 08/16/25 09:00 Proposed Procedures p Colonoscopy 83137 G0105 Z12.11(Not Applicable) - Dajuan Chadwick MD Was Beta Shea taken within 24 hours: N/A (Did not take today, took yesterday at 10 AM) Was Clonidine taken within 24 hours: N/A Last intake: Intake Last Liquid Date 08/15/25 Last Liquid Time 20:00 Last Solid Date 08/14/25 Last Solid Time 18:00 Social Tobacco and No alcohol Exam alert, oriented x 3 and regular rate & rhythm Airway Submandibular: within normal limits Cervical ROM: within normal limits Mallampati: Class II Comments: Comments: Edentulous Anesthetic Plan ASA status: 3 Anesthesia: MAC Other: No prior issues with anesthesia Completed bowel prep History of hypertension on amlodipine, atenolol and spironolactone. Preop BP 145/95 Emphysema/COPD. Patient states that she has chronic phlegm in her throat Current smoker Patient states METs are greater than 4 Labs 07/23/2025 reviewed acceptable for procedure Plan for MAC anesthesia Medications/Allergies Home Medications ?Medication ?Instructions ?Recorded ?Confirmed ?Last Taken ?Type cetirizine 10 mg capsule (Allergy 10 mg PO DAILY PRN allergies 02/12/22 08/16/25 08/15/25 History Relief (cetirizine)) aspirin 81 mg tablet,delayed 81 mg PO DAILY 06/06/24 08/16/25 08/14/25 History release amlodipine 10 mg tablet 10 mg PO DAILY 08/13/25 08/16/25 08/15/25 History atenolol 25 mg tablet 12.5 mg PO DAILY 08/13/25 08/16/25 08/15/25 History atorvastatin 10 mg tablet 10 mg PO DAILY 08/13/25 08/16/25 08/15/25 History spironolactone 50 mg tablet 50 mg PO DAILY 08/13/25 08/16/25 Unknown History Allergies Allergy/AdvReac Type Severity Reaction Status Date / Time No Known Allergies Allergy Verified 08/13/25 12:03 Current Medications Generic Name Dose Route Start Last Admin Trade Name Pranav PRN Reason Stop Dose Admin Sodium Chloride 1,000 mls @ 15 mls/hr 08/16/25 07:14 08/16/25 07:28 Sodium Chloride 0.9% IV 08/17/25 07:13 15 mls/hr .Q24H PRN Administration COLONOSCOPY FLUIDS PFSH Anesthesia Medical History Hypertension History of skin cancer left side of neck Fibromyalgia Arthritis Surgical History History of section History of umbilical hernia repair History of tonsillectomy Hx of colonoscopy with polypectomy prior to 2018 [place] Family History Father Cancer Mother Diabetes Grandmother Diabetes Social History Smoking and tobacco/nicotine status: current every day tobacco/nicotine user cigarettes Alcohol intake: never Substance/Drug Use: never Adopted: No Caregiver/support person: No Lives independently: No Household members: spouse Marital status: service: No Current occupational status: previously employed Sexually active: Yes Do you think of yourself as: Straight/Heterosexual Current gender identity: Female
--- NOTE | 2025-08-16 08:38 | W.PM.OPSUD ---
Surgery/Procedure H&P Update DATE OF PROCEDURE: August 16, 2025 DATE H&P PERFORMED: 07/31/25 H&P UPDATE INFORMATION: I have reviewed H&P completed within last 30 days, I have examined patient prior to procedure, No changes to prior documentation, H&P is in [facility] EMR on date indicated and Risks and benefits of the procedure reviewed PREOP DIAGNOSIS: Screening colonoscopy PLANNED PROCEDURE: Operation Date: 08/16/25 09:00 Proposed Procedures p Colonoscopy 12014 G0105 Z12.11(Not Applicable) - Dajuan Chadwick MD
[2025-08-16 09:44] VITALS: BP 133/83; PULSE 71; RESP 18; TEMP 36.4; O2SAT 96
[2025-08-16 10:13] VITALS: BP 148/80; PULSE 69; RESP 18; O2SAT 98
--- NOTE | 2025-08-16 10:14 | ANE.PACU2 ---
Inpatient post-anesthesia follow up: Airway intact: Yes Vital signs: Temperature 97.6 F Pulse Rate 69 Respiratory Rate 18 Blood Pressure 148/80 Pulse Oximetry 98 Oxygen Delivery Me thod Room Air Oxygen Flow Rate Fraction of Inspir ed Oxygen Hydration adequate: Yes Nausea and vomiting: No Pain level: 1 Mental status: Baseline
== END 2025-08-16 10:14 | disposition home or self-care (01) ==
PROVIDERS: PCP Registered Nurse; Visit Provider Surgery
PROC: 0DJD8ZZ Inspection of Lower Intestinal Tract, Via Natural or Artificial Opening Endoscopic (ICD-10-PCS; CPT 45378; principal; 2025-08-16 09:00)
DX: Z12.11 Encounter for screening for malignant neoplasm of colon (principal); K64.8 Other hemorrhoids; D12.3 Benign neoplasm of transverse colon; D12.8 Benign neoplasm of rectum; Z79.82 Long term (current) use of aspirin; I10 Essential (primary) hypertension; Z85.828 Personal history of other malignant neoplasm of skin; M79.7 Fibromyalgia; Z80.9 Family history of malignant neoplasm, unspecified; F17.210 Nicotine dependence, cigarettes, uncomplicated; J44.9 Chronic obstructive pulmonary disease, unspecified
CPT/HCPCS: 45380; 45385; 88305; J2704; J7030

== ENCOUNTER → 2025-08-28 10:52 | Outpatient (BNVA) | payer BC, MEDICAID, SELFPAY | PROVIDERS: PCP Registered Nurse; Visit Provider Registered Nurse | DX: R41.3 Other amnesia (principal) | CPT/HCPCS: 82306; 82607 ==

== ENCOUNTER 2025-09-25 13:29 | Emergency (ER) | payer BC, MEDICAID, SELFPAY ==
[2025-09-25 13:34] VITALS: BP 131/82; PULSE 78; RESP 16; TEMP 36.6; O2SAT 95; BMI 32.3
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
--- OUTSIDE RECORDS SUMMARY | 2025-09-25 13:43 | XMS_ITS | Clinical Summary ---
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
--- NOTE | 2025-09-25 14:02 | W.ED.ABDPA2 ---
HPI - Abdominal Pain General: Chief Complaint: Abdominal Pain Stated Complaint: stomach extended, vaginal/anus bleeding Time Seen by Provider: 09/25/25 13:42 History of Present Illness: Patient is a 60-year-old female with history of recent hemorrhoid removal that presents to the ED with right low flank pain. Context: She states they feel like contractions that she can time. She has never had a kidney stone or renal colic. Denies any dysuria. No polyuria. She has remote vaginal bleeding that has been going on for the last 3 months. This has been addressed with primary care and is awaiting follow-up on 09/28. No fevers. No recent cold or illness. This right low on and off low back pain that radiates to her right suprapubic region started this a.m. No nausea or vomiting. No change in stools. Associated Symptoms: Denies chills, dysuria, fever(s) and hematochezia Related Data Home Medications ?Medication ?Instructions ?Recorded ?Confirmed cetirizine 10 mg capsule (Allergy 10 mg PO DAILY PRN allergies 02/12/22 09/25/25 Relief (cetirizine)) aspirin 81 mg tablet,delayed 81 mg PO DAILY 06/06/24 09/25/25 release atenolol 25 mg tablet 12.5 mg PO DAILY 08/13/25 09/25/25 spironolactone 50 mg tablet 50 mg PO DAILY 08/13/25 09/25/25 Previous Rx's ?Medication ?Instructions ?Recorded amlodipine 10 mg tablet 10 mg PO DAILY #90 tabs 08/17/25 atorvastatin 10 mg tablet 10 mg PO DAILY #90 tabs 08/28/25 cholecalciferol (vitamin D3) 1,250 1,250 mcg PO .once a week 90 days 08/30/25 mcg (50,000 unit) capsule #12 caps Allergies Allergy/AdvReac Type Severity Reaction Status Date / Time No Known Allergies Allergy Verified 09/25/25 13:42 Review of Systems General: Reports: 10 or more systems reviewed and unremarkable except in HPI and below Const: Denies: fever(s), chills, change in weight or fatigue Eyes: Denies: change in vision or blurry vision Card: Denies: chest pain or palpitations Resp: Denies: dyspnea GI: Denies: abdominal pain or hematochezia : Denies: flank pain, difficulty voiding or dysuria Musc: Denies: neck pain or back pain Skin/Breast: Denies: rash, nipple discharge or breast mass Neuro: Denies: seizure-like activity Akash/Lymph: Denies: easy bruising PFSH ED PFSH: Medical History (Updated 09/25/25 @ 15:54 by LILIAN Currie) Hypertension History of skin cancer left side of neck Fibromyalgia Arthritis Surgical History History of section History of umbilical hernia repair History of tonsillectomy Hx of colonoscopy with polypectomy prior to 2018 [place] Family History Father Cancer Mother Diabetes Grandmother Diabetes Social History Smoking and tobacco/nicotine status: current every day tobacco/nicotine user cigarettes Alcohol intake: never Substance/Drug Use: never Adopted: No Caregiver/support person: No Lives independently: No Household members: spouse Marital status: service: No Current occupational status: previously employed Sexually active: Yes Do you think of yourself as: Straight/Heterosexual Current gender identity: Female Physical Exam Const: COMMON NORMALS: no acute distress GENERAL APPEARANCE: cooperative; not ill appearing and not frail appearing HENMT: COMMON NORMALS: normocephalic, atraumatic and Normal external nose present HEAD & SCALP: normocephalic and atraumatic FACE & SINUS: normal facial exam and face symmetric NOSE: Normal external nose present Eye: COMMON NORMALS: Equal, round and reactive pupils present and EOMs intact bilaterally PUPIL: Yes Equal, round and reactive pupils present Neck/C-Spine: GENERAL: Yes trachea midline Chest: CHEST: Yes Symmetrical chest wall rise Resp: COMMON NORMALS: normal respiratory effort, No retractions, No use of accessory muscles and clear to auscultation bilaterally AUSCULTATION: clear to auscultation bilaterally Cardio: COMMON NORMALS: regular rate and regular rhythm RATE: regular rate RHYTHM: regular rhythm GI: COMMON NORMALS: Normal to inspection, nondistended, normoactive bowel sounds present Extremity: COMMON NORMALS: no pedal edema Neuro: SENSORY EXAM: Yes extremities (intact) Psych: COMMON NORMALS: speech normal SPEECH: Yes normal speech Skin: COMMON NORMALS: no rashes or lesions noted GENERAL SKIN EXAM: no rashes or lesions noted Course Vital Signs: Vital signs: Vital Signs Temperature 97.9 F 09/25/25 13:34 Pulse Rate 77 09/25/25 16:20 Respiratory Rate 16 09/25/25 13:34 Blood Pressure 132/70 09/25/25 16:20 Pulse Oximetry 99 09/25/25 16:20 Oxygen Delivery Me thod Room Air 09/25/25 13:34 MDM - Abdominal Pain Medical Decision Making Patient is a 60-year-old female with acute onset this morning of right low flank pain with radiation to right suprapubic area without nausea or vomiting. Physical exam is benign. Will await urine analysis for further decision making to expand workup if needed Medical Records I reviewed the patient's medical records. Lab Data I reviewed the patient's lab results. 09/25/25 13:56 09/25/25 13:56 Labs/Radiology: Laboratory Results WBC 11.42 10^3/uL (3.29-11.43) 09/25/25 13:56 RBC 5.49 10^6/uL (3.85-5.65) 09/25/25 13:56 Hgb 17.50 g/dL (11.27-16.99) H 09/25/25 13:56 Hct 50.0 % (36-47) H 09/25/25 13:56 MCV 91.1 fl (85-98) 09/25/25 13:56 MCH 31.9 pg (27-33) 09/25/25 13:56 MCHC 35.0 g/dL (30-55) 09/25/25 13:56 RDW 12.6 % (12.1-15.1) 09/25/25 13:56 Plt Count 358 10^3/cmm (157-399) 09/25/25 13:56 MPV 10.1 fL (7.4-10.4) 09/25/25 13:56 Neut % (Auto) 59.2 % 09/25/25 13:56 Lymph % (Auto) 29.1 % 09/25/25 13:56 [place] % (Auto) 8.0 % 09/25/25 13:56 Eos % (Auto) 2.3 % 09/25/25 13:56 Baso % (Auto) 1.0 % 09/25/25 13:56 Neut # (Auto) 6.77 10^3/uL (1.8-7.7) 09/25/25 13:56 Lymph # (Auto) 3.3 10^3/uL (0.8-4.8) 09/25/25 13:56 [place] # (Auto) 0.9 10^3/uL (0.2-0.9) 09/25/25 13:56 Eos # (Auto) 0.3 10^3/uL (0.0-0.8) 09/25/25 13:56 Baso # (Auto) 0.1 10^3/uL (0.0-0.1) 09/25/25 13:56 Nucleated RBC % (auto) 0 % 09/25/25 13:56 Nucleated RBCs # 0.0 /100WBC 09/25/25 13:56 Sodium 138 mmol/L (136-145) 09/25/25 13:56 Potassium 3.9 mmol/L (3.5-5.1) 09/25/25 13:56 Chloride 101 mmol/L (98-107) 09/25/25 13:56 Carbon Dioxide 23 mmol/L (22-29) 09/25/25 13:56 Anion Gap 17.9 (5-19) 09/25/25 13:56 BUN 7 mg/dL (6-20) 09/25/25 13:56 Creatinine 0.8 mg/dL (0.5-0.9) 09/25/25 13:56 GFR Calculation 73.4 mL/min (90-130) L 09/25/25 13:56 Glucose 93 mg/dL (65-115) 09/25/25 13:56 Calculated Osmolality 284 mOsm/kg (285-295) L 09/25/25 13:56 Calcium 10.2 mg/dL (8.5-10.5) 09/25/25 13:56 Total Bilirubin 0.4 mg/dL (0.15-1.2) 09/25/25 13:56 AST 16 U/L (0-32) 09/25/25 13:56 ALT 14 U/L (0-33) 09/25/25 13:56 Alkaline Phosphatase 117 U/L (35-105) H 09/25/25 13:56 Total Protein 7.4 g/dL (6.6-8.7) 09/25/25 13:56 Albumin 4.7 g/dL (3.5-5.2) 09/25/25 13:56 Globulin 2.7 g/dL (1.3-4.6) 09/25/25 13:56 Lipase 26 U/L (13-60) 09/25/25 13:56 Urine Color Yellow (Yellow) 09/25/25 13:55 Urine Appearance Clear (CLEAR) 09/25/25 13:55 Urine pH 7.0 (5-7) 09/25/25 13:55 Ur Specific [place] 1.011 (1.005-1.030) 09/25/25 13:55 Urine Protein 1+ (Negative) A 09/25/25 13:55 Urine Glucose (UA) Negative (Normal) 09/25/25 13:55 Urine Ketones Negative (Negative) 09/25/25 13:55 Urine Blood Negative (Negative) 09/25/25 13:55 Urine Nitrate Negative (Negative) 09/25/25 13:55 Urine Bilirubin Negative (Negative) 09/25/25 13:55 Urine Urobilinogen 1.0 mg/dL (Negative) 09/25/25 13:55 Ur Leukocyte Esterase Negative (Negative) 09/25/25 13:55 Urine RBC 0-2 /hpf (0-2) 09/25/25 13:55 Urine WBC 0-5 /hpf (0-5) 09/25/25 13:55 Ur Squamous Epith Cells 6-10 /hpf (0-5) 09/25/25 13:55 Amorphous Sediment Not Reportable 09/25/25 13:55 Urine Bacteria None seen /hpf (NONE) 09/25/25 13:55 Hyaline Casts 0-4 /lpf H 09/25/25 13:55 No radiology studies performed this visit Discharge Plan Discharge Patient Disposition: Home Clinical Impression: Polycythemia, secondary Condition: Stable Prescriptions: No Action cholecalciferol (vitamin D3) 1,250 mcg (50,000 unit) capsule 1,250 mcg PO .once a week 90 Days Qty: 12 0RF Allergy Relief (cetirizine) 10 mg capsule 10 mg PO DAILY PRN (Reason: allergies) aspirin 81 mg tablet,delayed release (DR/EC) 81 mg PO DAILY amlodipine 10 mg tablet 10 mg PO DAILY Qty: 90 0RF Rx Instructions: Take 1 tablet by mouth once daily atorvastatin 10 mg tablet 10 mg PO DAILY Qty: 90 0RF Rx Instructions: Take 1 tablet by mouth once daily atenolol 25 mg tablet 12.5 mg PO DAILY Rx Instructions: Take 1/2 (one-half) tablet by mouth once daily spironolactone 50 mg tablet 50 mg PO DAILY Rx Instructions: TAKE 1 TABLET BY MOUTH ONCE DAILY . APPOINTMENT REQUIRED FOR FUTURE REFILLS Discharge Orders: Discharge ED (Routine); Ordered 09/25/25 Ordered By: Mallika Coffman Referrals: Lucille Ledesma FNP [Primary Care Provider, Family Practice] Discharge Diet: Clear Liquid Patient Instructions: Abdominal Pain (ED), Patient Portal & Ricardo Instructions Activity Restrictions/Additional Instructions: - Clear liquid diet until your symptoms resolve - continue to follow-up regarding your vaginal bleeding - Hold your spironolactone until your follow-up on Wednesday. Then discussed with your doctor regarding restarting this - Return to ED with worsening symptoms, fever greater than 100.[address] [facility] for your healthcare needs today. You have been screened and evaluated and felt safe for discharge. Health conditions do change or evolve sometimes and as such it is important that you follow up with your Primary Doctor to be re checked, 3-5 days is a general good time frame for follow up. 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
[2025-09-25 14:04] LABS: Hematocrit 50.0 % (36-47); Hemoglobin 17.50 g/dL (11.27-16.99); Mean Corpuscular HGB Conc 35.0 g/dL (30-55); Mean Corpuscular Hemoglobin 31.9 pg (27-33); Mean Corpuscular Volume 91.1 fl (85-98); Nucleated Red Blood Cells % 0 %; Platelet Count 358 10^3/cmm (157-399); Red Blood Count 5.49 10^6/uL (3.85-5.65); White Blood Count 11.42 10^3/uL (3.29-11.43)
[2025-09-25 14:19] LABS: Glucose Urine UA Negative (Normal); Nitrate Urine Negative (Negative); Specific Gravity, Urine 1.011 (1.005-1.030)
[2025-09-25 14:24] LABS: Add Urine Microscopic? YES
[2025-09-25 14:41] VITALS: BP 139/86; PULSE 72; O2SAT 96
[2025-09-25 15:17] LABS: Alanine Aminotransferase 14 U/L (0-33); Albumin Level 4.7 g/dL (3.5-5.2); Alkaline Phosphatase 117 U/L (35-105); Anion Gap 17.9 (5-19); Aspartate Amino Transferase 16 U/L (0-32); Blood Urea Nitrogen 7 mg/dL (6-20); Calcium 10.2 mg/dL (8.5-10.5); Carbon Dioxide 23 mmol/L (22-29); Chloride 101 mmol/L (98-107); Globulin 2.7 g/dL (1.3-4.6); Glucose 93 mg/dL (65-115); Lipase 26 U/L (13-60); Osmolality Calculated 284 mOsm/kg (285-295); Potassium 3.9 mmol/L (3.5-5.1); Sodium 138 mmol/L (136-145); Total Protein 7.4 g/dL (6.6-8.7)
[2025-09-25 16:20] VITALS: BP 132/70; PULSE 77; O2SAT 99
== END 2025-09-25 16:21 | disposition home or self-care (01) ==
PROVIDERS: Emergency Medicine; Emergency Provider Physician Assistant; PCP Registered Nurse
DX: D75.1 Secondary polycythemia (principal); Z79.82 Long term (current) use of aspirin; F17.210 Nicotine dependence, cigarettes, uncomplicated; I10 Essential (primary) hypertension; Z85.828 Personal history of other malignant neoplasm of skin
CPT/HCPCS: 36415; 80053; 81001; 83690; 85025; 96360; 96361; 99284; J7120